=== PATIENT | male | born 1965 | race Caucasian/White ===

== ENCOUNTER 2022-12-04 11:45 | Emergency (ER) | payer MEDICAID ==
[~2022-12-04] VITALS: Ht 182.9 cm; Wt 99.0 kg
[2022-12-04 12:01] VITALS: O2SAT 99
[2022-12-04 14:05] LABS: BASOPHILS % 0.4 % (0.0-2.0); DIFFERENTIAL COMMENT 0; EOSINOPHILS % 3.8 % (0.0-5.0); HEMATOCRIT. 41.8 % (42.0-52.0); HEMOGLOBIN. 13.6 g/dL (14.0-18.0); LYMPHOCYTES % 42.5 % (20.0-50.0); MEAN CORPUSCULAR HEMOGLOBIN 25.3 pg (28.0-32.0); MEAN CORPUSCULAR HGB CONC 32.5 g/dL (31.0-37.0); MEAN CORPUSCULAR VOLUME 77.9 fL (80.0-94.0); MONOCYTES % 12.1 % (2.0-8.0); NEUTROPHILS % 41.2 % (40.0-76.0); PLATELET 190 x1000/uL (130-400); RED BLOOD CELL COUNT 5.36 mill/uL (4.7-6.1); RED CELL DISTRIBUTION WIDTH 15.3 % (11.6-14.6); WHITE BLOOD COUNT 4.6 x1000/uL (4.5-11.0)
[2022-12-04 14:32] LABS: CHLORIDE 104 mEq/L (98-107); INDEX HEMOLYSI 1 (1-3); INDEX ICTERIC 1 (1-4); INDEX LIPEMIC 1 (1-3); POTASSIUM 4.7 mEq/L (3.5-5.1); SODIUM 135 mEq/L (136-145)
[2022-12-04 14:41] LABS: ALANINE AMINOTRANSFERASE 21 IU/L (13-61); ALBUMIN 3.9 g/dL (3.4-5.0); ASPARTATE AMINOTRANSFERASE 21 IU/L (15-37); BILIRUBIN TOTAL 0.5 mg/dL (0.1-1.0); CALCIUM 9.7 mg/dL (8.5-10.1); CARBON DIOXIDE 28 mEq/L (21-32); CREATININE 1.8 mg/dL (0.6-1.3); GLUCOSE 108 mg/dL (70-105); PROTEIN TOTAL 8.2 g/dL (6.0-8.3); UREA NITROGEN BLOOD 38 mg/dL (7-21)
[2022-12-04] MEDS ORDERED: AMLO5TAB88 MT (15:07)
[2022-12-04] MEDS ORDERED: INSU100I28 SQ (15:07)
[2022-12-04] MEDS ORDERED: TACR1CAP MT (15:07)
[2022-12-04] MEDS ORDERED: REPA2TAB8 MT (15:07)
[2022-12-04] MEDS ORDERED: MYCO360T3 MT (15:07)
[2022-12-04] MEDS ORDERED: PANT40TA51 MT (15:07)
[2022-12-04] MEDS ORDERED: NEBI2.5T2 MT (15:07)
[2022-12-04 15:50] VITALS: BP 155/77; PULSE 73; RESP 18; TEMP 98.4
== END 2022-12-04 15:51 | disposition home or self-care (01) ==
LOC: ER 12:09
DX: Z76.0 Encounter for issue of repeat prescription (principal); Z94.0 Kidney transplant status; I12.9 Hypertensive chronic kidney disease with stage 1 through stage 4 chronic kidney disease, or unspecified chronic kidney disease; E11.22 Type 2 diabetes mellitus with diabetic chronic kidney disease; N18.9 Chronic kidney disease, unspecified; Z98.890 Other specified postprocedural states
CPT/HCPCS: 36415; 80053; 85025; 99283